=== PATIENT | female | born 1960 | race Caucasian/White ===

== ENCOUNTER 2016-12-18 07:13 | Day surgery (SDC) | payer OTHER ==
[~2016-12-18] VITALS: Ht 170.2 cm; Wt 98.9 kg
[~2016-12-18 07:13] MED LIST: 0.9% Sodium Chloride 1,000 ML IV SCH; LOSA25TA21 PO; Sodium Chloride LOK Flush 10 mL Syringe IV PRN; fentaNYL-PF 50 mCg/mL 2 mL Inj IVPUSH PRN
[2016-12-18 07:29] VITALS: BP 143/84; PULSE 74; RESP 14; O2SAT 96
[2016-12-18] MEDS ORDERED: 0.9% Sodium Chloride 1,000 ML IV ONE (07:50)
--- NOTE | 2016-12-18 08:20 | PCM.ENDCOL ---
Colonoscopy Date of Service: Dec 18, 2016 Physician Andres Berumen MD Pre Procedure Diagnosis: Screening history of polyp Post Procedure Dx & Findings: Polyp hemorrhoids Procedure Colonoscopy PROCEDURE IN DETAIL: Prep adequate Withdrawal time 12 minutes After unremarkable rectal examination the Olympus video colonoscope was inserted patient's anal canal and was advanced to cecum. Landmarks were identified including the ileocecal valve and appendiceal orifice. Scope was withdrawn systematically. Visualized colonic mucosa showed healthy shiny mucosa with normal healthy-appearing vasculature. In the cecum, there was a 2 mm polyp which was removed completely using cold snare. In the ascending colon there were 3 polyps. These are 1 mm to 3 mm in size. They were all removed completely using cold snare. In the descending colon there was a 1 mm polyp which was removed completely using cold forceps. In the sigmoid, there were 2 polyps. There were 1 mm in size. These were all removed completely using cold forceps. In the rectum retroflexion was done which showed hemorrhoids. Anal canal was inspected carefully on the way out and hemorrhoids noted. Impression Polyps 7 status post complete removal. Personal history of colon polyp and family history of colon cancer Hemorrhoids Recommendation Repeat colonoscopy 3 years Presedation Assessment Risks and Benefits Informed consent was obtained from the patient after all risks and benefits including but not limited to drug reaction, infection, pain, bleeding, perforation, as well as alternatives were discussed. Patient monitoring Continuous pulse oximetry, cardiac monitoring, blood pressure monitoring, IV access, and oxygen at 2L per nasal cannula. Periprocedural Fentanyl: Fentanyl 150mcg Incrementally Midazolam: Midazolam 5mg Incrementally Complications There were no periprocedural complications identified. Post Procedure Plan Post Procedure Recommendations 1. Restrict activities today. 2. Resume normal activities in the morning. 3. Resume medications. 4. Patient informed of normal post procedure side effects as bloating, drowsiness, blood streaking in the stool. 5. average risk CRCS. If colon polyps come back as: -Hyperplastic- can repeat colonoscopy in 10 years -Tubular adenoma- repeat colonoscopy in 5 years -Tubulovillous/villous adenoma- repeat colonoscopy in 3 years -If any dysplasia- return to clinic as soon as possible 6. Please don't hesitate to call me with any questions. Andres Berumen MD Dec 18, 2016 08:20
[2016-12-18 08:25] VITALS: BP 125/61; PULSE 66; RESP 12; O2SAT 96
[2016-12-18 08:34] VITALS: BP 106/55; PULSE 63; RESP 12; O2SAT 96
[2016-12-18 08:40] VITALS: BP 118/68; PULSE 67; RESP 12; O2SAT 97
--- NOTE | 2016-12-19 15:16 | PATH ---
SURGICAL PATHOLOGY Attending Physician:Andres Berumen M.D. CASE STATUS: Signed Out PATIENT NAME: MATY GARCIA PID: [id number] : 1960 DATE COLLECTED:12/18/2016 17:03 SPECIMEN: 1: Colon, Polyp 2: Colon, Polyp 3: Colon, Polyp 4: Colon, Polyp CLINICAL HISTORY: 1. CECUM POLYPS X1 2. ASCENDING POLYPS X3 3. DESCENDING POLYP X1 4. SIGMOID POLYPS X2 FINAL DIAGNOSIS: 1.CECUM POLYP: TUBULAR ADENOMA. 2.ASCENDING COLON POLYPS: TUBULAR ADENOMA INVOLVING FOUR BIOPSY FRAGMENTS. SESSILE SERRATED ADENOMA INVOLVING SINGLE BIOPSY FRAGMENT. 3.DESCENDING COLON POLYP: TUBULAR ADENOMA. 4.SIGMOID COLON POLYP: HYPERPLASTIC POLYP INVOLVING SINGLE BIOPSY FRAGMENT. ICD10 D12.0 GROSS DESCRIPTION: The specimen is received in four formalin filled containers labeled with the patient's name. 1). The specimen is sublabeled "cecum polyps" and consists of a 0.3 x 0.2 x 0.2 CM portion of tissue which is entirely submitted in cassette 1A. 2). The specimen is sublabeled "ascending polyps" and consists of 5 tiny portions of tissue which aggregate to 0.3 x 0.3 x 0.2 CM. The specimen is entirely submitted in cassette 2A. 3). The specimen is sublabeled "descending polyp" and consists of a 0.4 x 0.3 x 0.2 CM portion of tissue which is entirely submitted in cassette 3A. 4). The specimen is sublabeled "sigmoid polyps" and consists of 2 portions of tissue which aggregate to 0.2 x 0.2 x 0.2 CM. The specimen is entirely submitted in cassette 4A. 12/18/2016 [facility] MICRO DESCRIPTION: See diagnosis. ICD-9 CODES: CPT CODES: 1: 12014 2: 50626 3: 21922 4: 35203 Electronically Signed Out Elmer Medley MD [facility] Pathology [facility] [address], [place] [address] Technical component performed at [facility], [address], [place], [address]
== END 2016-12-18 23:59 | disposition home or self-care (01) ==
LOC: END 07:13
PROVIDERS: ATTEND Internal Medicine
DX: Z12.11 Encounter for screening for malignant neoplasm of colon (principal); Z86.010 Personal history of colon polyps; D12.0 Benign neoplasm of cecum; D12.4 Benign neoplasm of descending colon; D12.2 Benign neoplasm of ascending colon; K64.9 Unspecified hemorrhoids; I10 Essential (primary) hypertension; E66.9 Obesity, unspecified; F17.210 Nicotine dependence, cigarettes, uncomplicated; Z68.35 Body mass index [BMI] 35.0-35.9, adult; Z87.442 Personal history of urinary calculi
CPT/HCPCS: 45380; 45385; 99153; G0500; J2250; J3010; J7030